=== PATIENT | female | born 1985 | race Caucasian/White ===

== ENCOUNTER 2019-04-24 09:14 | Outpatient (RCR) | payer SELFPAY | END 2019-07-23 | disposition home or self-care (01) | LOC: EDSEX 09:14 → CARD 09:14 | PROVIDERS: ATTEND Nurse Practitioner | DX: R55 Syncope and collapse (principal) | CPT/HCPCS: 93225; 93226 ==

== ENCOUNTER → 2020-05-29 | Outpatient (CLI) | payer OTHER ==
[~2020-05-29] MED LIST: CATHETER FLUSH 10 ML SYR IV PRN; HOLD METFORMIN - RECEIVED CONTRAST 20 ML VIAL IV SCH; IOHEXOL 350 MG/ML 100 ML (OMNIPAQUE 350) VIAL IV ONE; NS 100 ML (IVPB) BAG IV ONE
[2020-05-29 12:17] LABS: HEMATOCRIT 37 % (35-52); HEMOGLOBIN 12.2 G/DL (11.5-16.0); MEAN CORPUSCULAR HEMOGLOBIN 31 PG (25-34); MEAN CORPUSCULAR HGB CONC 33 G/DL (32-36); MEAN CORPUSCULAR VOLUME 92 FL (80-99); MEAN PLATELET VOLUME 9.5 FL (7.4-10.4); NEUTROPHILS % (AUTO) 58 % (42-75); PLATELET COUNT 237 10^3/uL (130-400); WHITE BLOOD COUNT 6.3 10^3/uL (4.3-11.0)
[2020-05-29 12:18] LABS: BASOPHILS # (AUTO) 0.1 10^3/uL (0.0-0.1); BASOPHILS % (AUTO) 1 % (0-10); EOSINOPHILS # (AUTO) 0.2 10^3/uL (0.0-0.3); EOSINOPHILS % (AUTO) 3 % (0-10); LYMPHOCYTES # (AUTO) 2.2 X 10^3 (1.0-4.0); LYMPHOCYTES % (AUTO) 34 % (12-44); MONOCYTES # (AUTO) 0.3 X 10^3 (0.0-1.0); MONOCYTES % (AUTO) 4 % (0-12); NEUTROPHILS # (AUTO) 3.7 X 10^3 (1.8-7.8)
--- NOTE | 2020-05-29 15:30 | Diagnostic Imaging Report ---
PROCEDURE: CT abdomen and pelvis with contrast. TECHNIQUE: Multiple contiguous axial images were obtained through the abdomen and pelvis after administration of intravenous contrast. Auto Exposure Controls were utilized during the CT exam to meet ALARA standards for radiation dose reduction. All CT scans use one or more of the following dose optimizing techniques: automated exposure control, MA and/or KvP adjustment based on patient size and exam type or iterative reconstruction. INDICATION: Right lower quadrant abdominal pain. There is mild heterogeneous enhancement in the hepatic parenchyma, greater in the right lobe. Main portal vein and its right and left branches appear to be widely patent. There is no evidence of pancreatic, adrenal gland, splenic or renal abnormality. No free fluid is seen within the abdomen or pelvis. No localized inflammation is seen within the abdomen or pelvis. The appendix is not well seen however there is no evidence of periappendiceal region inflammation. There is trace pelvic free fluid. Urinary bladder is unremarkable. IMPRESSION: Heterogeneous enhancement in the liver possibly related to hepatitis or venous congestion. Correlation with laboratory values would be of use. Otherwise, no definite acute abnormality is identified in the abdomen or pelvis. Dictated by: Dictated on workstation # [id number]
== END ==
LOC: LAB FS 11:47
PROVIDERS: ATTEND Nurse Practitioner Family
DX: R10.31 Right lower quadrant pain (principal)
CPT/HCPCS: 36415; 74177; 85025

== ENCOUNTER 2020-07-22 05:38 | Outpatient (RCR) | payer OTHER ==
[~2020-07-22] VITALS: Ht 160 cm; Wt 48.1 kg
== END 2020-07-22 14:14 | disposition home or self-care (01) ==
LOC: PREOP 05:38
PROVIDERS: ATTEND Surgery
DX: Z01.812 Encounter for preprocedural laboratory examination (principal); R19.5 Other fecal abnormalities

== ENCOUNTER → 2020-07-25 | Outpatient (CLI) | payer OTHER ==
[~2020-07-25] MED LIST changes: +DIAZ5TAB PO; -HOLD METFORMIN - RECEIVED CONTRAST 20 ML VIAL IV SCH; -IOHEXOL 350 MG/ML 100 ML (OMNIPAQUE 350) VIAL IV ONE; -NS 100 ML (IVPB) BAG IV ONE; +SERT100T PO
--- NOTE | 2020-07-25 13:16 | Diagnostic Imaging Report ---
EXAMINATION: Gallbladder scintigraphy. HISTORY: Right upper quadrant pain. COMPARISON: None available. TECHNIQUE: Anterior scintigraphic imaging of the abdomen was performed after the intravenous administration of 5.3 mCi Tc-99m Choletec. FINDINGS: The upper abdomen was imaged for 60 minutes with the gamma camera. There is prompt homogeneous uptake of radiopharmaceutical by the liver. There is activity in the common duct and gallbladder by 10 minutes. Small bowel activity is seen by 20 minutes. At 60 minutes, the patient received 8 ounces of Ensure. After an additional 60 minutes, the gallbladder ejection fraction was calculated to be 38% (normal is >35%) IMPRESSION: 1. Patent common and cystic bile ducts. 2. No gallbladder dysfunction. Dictated by: Dictated on workstation # [id number]
== END ==
LOC: CARD 09:32
PROVIDERS: ATTEND Surgery
DX: K82.8 Other specified diseases of gallbladder (principal)
CPT/HCPCS: 78227; A9537

== ENCOUNTER 2020-07-29 07:47 | Day surgery (SDC) | payer OTHER ==
[2020-07-29] VITALS (11 sets, daily range): BP systolic 81–107; BP diastolic 48–78
[~2020-07-29] VITALS: Ht 160 cm; Wt 48.0 kg
[2020-07-29] MEDS ORDERED: LACTATED RINGERS 1,000 ML IV STA (07:48)
[2020-07-29] MEDS ORDERED: LACTATED RINGERS 1,000 ML IV ONE (07:51)
[2020-07-29] MEDS ORDERED: HURRICAINE EXT TUBE (BENZOCAINE) XX PRN (08:00)
[2020-07-29] MEDS ORDERED: MIDAZOLAM 5 MG/5 ML (VERSED) VIAL ONE (08:05)
[2020-07-29] MEDS ORDERED: PROPOFOL INJECTION 50 ML IV ONE ×3 (08:05→09:16)
[2020-07-29] MEDS ORDERED: DIAZ5TAB PO (08:19)
[2020-07-29] MEDS ORDERED: SERT100T PO (08:19)
--- NOTE | 2020-07-29 08:22 | Progress Note-Pre Operative ---
Pre-Operative Progress Note H&P Reviewed The H&P was reviewed, patient examined and no changes noted. Time Seen by Provider: 08:18 Date H&P Reviewed: Jul 29, 2020 Time H&P Reviewed: 08:18 Pre-Operative Diagnosis: Gastritis, MelROMI Dhaliwal DO Jul 29, 2020 08:22
--- NOTE | 2020-07-29 10:23 | Progress Note-Post Operative ---
Post-Operative Progess Note Surgeon (s)/Radioisotope Technologist (s) Surgeon ROMI ARMENDARIZ DO Radioisotope Technologist: MICHAEL Hurtado Pre-Operative Diagnosis Gastritis, Melena Post-Operative Diagnosis Gastritis, Esophageal polyp internal hemorrhoids Procedure & Operative Findings Date of Procedure 07/29/20 Procedure Performed/Findings EGD with bx Colonoscopy Anesthesia Type IV sedation by SUPERVISOR FISH PROCESSING Estimated Blood Loss Estimated blood loss (mL): scant Specimens/Packing Specimens Removed antral bx, body of stomach bx, GE jxn bx Esophageal polyp x 2 ROMI ARMENDARIZ DO Jul 29, 2020 10:23
--- NOTE | 2020-07-29 10:24 | Endoscopy Discharge Instruct ---
Endo Procedure/Findings Findings 1.: Gastritis 2.: Other Findings (Esophageal polyp) 3.: Internal Hemorrhoids Discharge Instructions - Activity: You might feel a little sleepy until tomorrow. This is due to the medicine you received to relax you. Until tomorrow, you should: NOT drive a car, operate machinery or power tools. NOT drink any alcoholic beverages. NOT make any important decisions or sign importortant papers. Do not return to work until tomorrow, unless otherwise instructed. Resume previous activities tomorrow. Diet: Start by taking liquids. If you tolerate liquids, advance to solid food. 1.: EGD in 1 year 2.: Colonscopy in 10 years Notify Physician - If you experience excessive bleeding, unusual abdominal pain, fever, or chest pain, contact your doctor immediately. ROMI ARMENDARIZ DO Jul 29, 2020 10:24
--- NOTE | 2020-07-29 11:56 | Anesthesia-General Post-Op ---
MAC Patient Condition Mental Status/LOC: Same as Preop Cardiovascular: Satisfactory Nausea/Vomiting: Absent Respiratory: Satisfactory Pain: Controlled Complications: Absent Post Op Complications Complications None Follow Up Care/Instructions Patient Instructions None needed. Anesthesiology Discharge Order Discharge Order Patient is doing well, no complaints, stable vital signs, no apparent adverse anesthesia problems. No complications reported per nursing. DEE SZYMANSKI CRNA Jul 29, 2020 11:56
--- NOTE | 2020-07-29 23:34 | OPERATIVE REPORT ---
DATE OF SERVICE: PREOPERATIVE DIAGNOSES: Gastritis, melena. l POSTOPERATIVE DIAGNOSES: Gastritis, esophageal polyp, melena and internal hemorrhoids. PROCEDURES: 1. EGD with biopsy. 2. Colonoscopy. SURGEON: Thanh Tan DO IC DESIGN ENGINEER: Citlalli Herrera MS4. ANESTHESIA: IV sedation by the SPECIAL EVENTS DIRECTOR. SPECIMEN: Biopsy from the antrum, biopsy of body of stomach, biopsy of the GE junction and esophageal polyp x2. BLOOD LOSS: Scant. FLUIDS: Per anesthesia. POSTOPERATIVE CONDITION: Stable. INDICATION FOR PROCEDURE: The patient is a 34-year-old female who has been having some upper abdominal pain, sounds like gastritis with some melena, change in stools, needed a workup. FINDINGS: The patient had some gastritis and some esophageal polyps. She also had internal hemorrhoids, nothing else going on in the colon. PROCEDURE NOTE: After informed consent was obtained, the patient was brought to the endoscopy suite, placed in bed in left lateral decubitus position. She was administered IV sedation by the SPECIAL EVENTS DIRECTOR who then monitored her vitals the entire time, heart rate, blood pressure and pulse ox and started with the EGD, placing scope down the mouth. On the way down, took a picture of the vocal cords and then saw a polyp, took a picture. Pushed pass this, saw some changes at the GE junction, took a picture, pushed into the stomach, had some gastritis, took a picture, pushed into the duodenum, looked fine, took a picture. Pulled back and did a biopsy of the antrum. Retroflexed the scope, took another biopsy of body of stomach, did not really see hiatal hernia and at this point then pulled the scope into the GE junction, did a biopsy. Suctioned all the air out and then pulled the scope up into the esophagus and we found two esophageal polyps, removed one of them in one bite and the other one took bites to remove. Some scant bleeding. Pulled the scope up the esophagus and out the mouth. Switched camera, switched gloves, went down below, started the colonoscopy, pushed in to about 140 cm, able to get all the way to cecum, took a picture of appendiceal orifice, noted the ileocecal valve and then slowly withdrew the scope insufflating circumferential us, looking at the cecum, up the ascending colon to the hepatic flexure, then down the transverse colon and splenic flexure, into the descending colon down into the sigmoid and finally into the rectum, retroflexed in the rectal vault, saw some very minimal internal hemorrhoids, grade I may be and then removed the scope. The patient tolerated the procedure. She recovered in endoscopy suite. Job ID: [id number] DocumentID: [id number] Dictated Date: 07/29/2020 20:01:19 Labor Arbitrator Date: 07/29/2020 23:33:54 Dictated By: THANH TAN DO
== END 2020-07-29 10:45 | disposition home or self-care (01) ==
LOC: ENDO 07:47
PROVIDERS: ATTEND Surgery
DX: K29.50 Unspecified chronic gastritis without bleeding (principal); K92.1 Melena; K22.8 Other specified diseases of esophagus; K64.8 Other hemorrhoids; F41.9 Anxiety disorder, unspecified; F32.9 Major depressive disorder, single episode, unspecified; B96.81 Helicobacter pylori [H. pylori] as the cause of diseases classified elsewhere; K20.90 Esophagitis, unspecified without bleeding; F17.210 Nicotine dependence, cigarettes, uncomplicated; Z79.899 Other long term (current) drug therapy; Z90.711 Acquired absence of uterus with remaining cervical stump; Z80.0 Family history of malignant neoplasm of digestive organs; Z80.3 Family history of malignant neoplasm of breast
CPT/HCPCS: 88305; 88342

== ENCOUNTER 2020-07-31 05:50 | Outpatient (RCR) | payer OTHER ==
[~2020-07-31] VITALS: Ht 160 cm; Wt 49.9 kg
[~2020-07-31 05:50] MED LIST changes: -CATHETER FLUSH 10 ML SYR IV PRN
== END 2020-07-31 12:25 | disposition home or self-care (01) ==
LOC: PREOP 05:50
PROVIDERS: ATTEND Surgery
DX: Z01.818 Encounter for other preprocedural examination (principal)

== ENCOUNTER 2020-08-07 09:25 | Day surgery (SDC) | payer OTHER ==
[2020-08-07] VITALS (11 sets, daily range): BP systolic 97–119; BP diastolic 61–72
[~2020-08-07] VITALS: Ht 160 cm; Wt 49.9 kg
[2020-08-07] MEDS ORDERED: LACTATED RINGERS 1,000 ML IV PRN (09:45)
[2020-08-07] MEDS ORDERED: ceFAZolin 2 GM IV Premixed 50 ML IV ONE (09:45)
--- NOTE | 2020-08-07 09:56 | Progress Note-Pre Operative ---
Pre-Operative Progress Note H&P Reviewed The H&P was reviewed, patient examined and no changes noted. Time Seen by Provider: 09:52 Date H&P Reviewed: Aug 07, 2020 Time H&P Reviewed: 09:53 Pre-Operative Diagnosis: Biliary Dyskinesia ROMI ARMENDARIZ DO Aug 07, 2020 09:56
[2020-08-07] MEDS ORDERED: CATHETER FLUSH 10 ML SYR IV PRN (10:00)
[2020-08-07 10:01] LABS: BASOPHILS % (AUTO) 0 % (0-10); EOSINOPHILS # (AUTO) 0.1 10^3/uL (0.0-0.3); EOSINOPHILS % (AUTO) 2 % (0-10); HEMATOCRIT 37 % (35-52); HEMOGLOBIN 11.9 g/dL (11.5-16.0); LYMPHOCYTES # (AUTO) 1.3 10^3/uL (1.0-4.0); LYMPHOCYTES % (AUTO) 24 % (12-44); MEAN CORPUSCULAR HEMOGLOBIN 30 pg (25-34); MEAN CORPUSCULAR HGB CONC 32 g/dL (32-36); MEAN CORPUSCULAR VOLUME 95 fL (80-99); MEAN PLATELET VOLUME 9.4 fL (9.0-12.2); MONOCYTES # (AUTO) 0.3 10^3/uL (0.0-1.0); MONOCYTES % (AUTO) 6 % (0-12); NEUTROPHILS # (AUTO) 3.7 10^3/uL (1.8-7.8); NEUTROPHILS % (AUTO) 68 % (42-75); PLATELET COUNT 233 10^3/uL (130-400); WHITE BLOOD COUNT 5.5 10^3/uL (4.3-11.0)
[2020-08-07] MEDS ORDERED: fentaNYL INJECTION 100 MCG/2 ML AMP ONE (10:02)
[2020-08-07] MEDS ORDERED: MIDAZOLAM 2 MG/2 ML (VERSED) VIAL ONE (10:06)
[2020-08-07] MEDS ORDERED: LIDOCAINE PF 2% 5 ML (XYLOCAINE) VIAL ONE (10:09)
[2020-08-07] MEDS ORDERED: ONDANSETRON 4 MG/2 ML (SDV) Z0FRAN ONE (10:09)
[2020-08-07] MEDS ORDERED: proPOfol 200 MG/20 ML (DIPRIVAN) VIAL IV ONE (10:09)
[2020-08-07] MEDS ORDERED: SEVOFLURANE (ULTANE) 15 ML INHAL SOLN ONE (10:10)
[2020-08-07] MEDS ORDERED: LIDOCAINE/EPI 1%-1:100,000 (XYLOCAINE) 50 ML ONE (10:12)
[2020-08-07] MEDS ORDERED: IOPAMIDOL 61% 30 ML (ISOVUE 300) VIAL ONE (10:12)
[2020-08-07] MEDS ORDERED: ROCURONIUM 10 MG/ML 5 ML SYRINGE IV ONE ×3 (10:24→10:38)
[2020-08-07] MEDS ORDERED: GLYCOPYRROLATE 0.2 MG/ML (ROBINUL) 2 ML VIAL ONE (11:11)
[2020-08-07] MEDS ORDERED: NEOSTIGMINE 3 MG/3 ML VIAL ONE (11:12)
--- NOTE | 2020-08-07 11:24 | Progress Note-Post Operative ---
Post-Operative Progess Note Surgeon (s)/Armed Security Professional (s) Surgeon ROMI ARMENDARIZ DO Armed Security Professional: Gucci Pre-Operative Diagnosis Biliary Dyskinesia Post-Operative Diagnosis same Procedure & Operative Findings Date of Procedure 08/07/20 Procedure Performed/Findings PROCEDURE: Laparoscopic cholecystectomy with intraoperative cholangiogram. COMPLICATIONS: None. PROCEDURE: The patient was taken to the operating suite and was prepped and draped in sterile fashion. A surgical pause was performed. Just superior to the umbilicus, a 12 mm incision was made. Dissection was taken down to the fascia, which was then scored and grasped with a Jensen and the abdomen was then entered. A 0 Vicryl suture was placed in a bjuqyk-aw-pdqaf fashion and a Kingsley trocar was placed and secured. Pneumoperitoneum was achieved. A 5mm trochar place in the subxyphoid and 2 in the right upper quadrant. The gallbladder was then grasped and elevated. There were adhesions to the gallbladder which usually indicates previous galllbladder attacks. These were taken down and then the cystic duct, and cystic artery were then dissected out. Artery was in front of the duct so it was transected first. Clips were placed along the proximal and distal portion of the cystic artery which was then transected. Clip was placed on the distal portion of the cystic duct which was then partially transected. An arrow catheter was inserted into the duct. The cholangiogram was then performed. No filing defects and contrast made its way into the duodenum. Catheter removed. Clips were placed on proximal portion of the cystic duct and then the duct was then transected. Hook cautery was used to dissect the gallbladder from the gallbladder fossa achieving hemostasis. The gallbladder was placed in an Endobag and removed through the 12 mm trocar site. The abdomen was then reinspected. Copious amounts of irrigation were used to irrigate the abdomen and there were no signs of active bleeding. Hemostasis had been achieved. The 12 mm fascial defect was then closed with 0 Vicryl suture that had been placed in a [id number]-[id number] fashion. The abdomen was then desufflated, the trocars were removed. The abdomen was then washed and dried. The skin was then closed using 4-0 Monocryl in a subcuticular fashion. The abdomen was washed and dried and Skin Affix was place over incisions. Patient tolerated the procedure well without any complications and was taken to the recovery room in stable condition. Dr. Duckworth assisted on this case helping to make incisions, close incisions, identify anatomy and hold anatomy out of the way. Anesthesia Type GET Estimated Blood Loss Estimated blood loss (mL): scant Specimens/Packing Specimens Removed GB and contents ROMI ARMENDARIZ DO Aug 07, 2020 11:24
[2020-08-07] MEDS ORDERED: ACHD5005 PO (11:25)
--- NOTE | 2020-08-07 11:25 | Discharge Inst-Surgical ---
Discharge Inst-Surgical Depart Medication/Instructions New, Converted or Re-Newed RX: RX Given to Pt/Family Patient Instructions Follow up Appt: Make appointment for 1 week. [phone] Instructions: No lifting greater than 20 pounds. No strenuous activity. May shower in 24 hours, no tub bath or soaking. Use incentive spirometer at home as directed. No Smoking Skin/Wound Care: May remove bandages in am. You need to leave the Dermabond on incision it will fall off on it's own. Symptoms to Report: Appetite Changes, Extremity Discoloration, Numbness/Tingling, Swelling Increased, Bleeding Excessive, Eyesight Changes, Pain Increased, Urine Color Change, Constipation(Persistent), Fever over 101 degree F, Pain/Pressure in chest, Urinating Difficulty, Cough Up/Vomit Blood, Heart Beat Irreg/Pounding, Pain/Pressure in jaw, Cramps in feet or legs, Lightheadedness, Pain/Pressure in shoulder, Diarrhea(Persistent), Memory Changes Suddenly, Questions/Concerns, Weight gain consecutive days, Dizziness/Fainting, Nausea/Vomiting, Shortness of Breath, Weight gain over 2 pounds If questions or concerns contact your physician Or seek help at emergency department. Activity Activity as Tolerated: Yes Activity Instructions: Avoid Stress to Incision Driving Instructions: No Driving/Refer to Diet Discharge Diet: Avoid Fatty Foods, Low Fat/Low Cholesterol Diet After 24 Hours: Clear Liquid if Nauseous If Any Problems/Questions/Issu: Contact Your Physician, Go to Emergency Room Skin/Wound Care Infection Signs and Symptoms: Increased Redness, Foul Odor of Wound, Increased Drainage, Skin Itchy or Has a Rash, Increased Swelling, Temperature Above 101 F Wound Care Comment: heating pad to shoulder or neck tonight for pain Bathing Instructions: Shower Stitches/Gomer/Dermabond Dis: Dermabond Ice Pack: Ice On and Off Site (as needed for pain at incision) ROMI ARMENDARIZ DO Aug 07, 2020 11:25
[2020-08-07] MEDS ORDERED: MEPERIDINE (DEMEROL) INJ 50 MG/ML IVP ONE (11:30)
[2020-08-07] MEDS ORDERED: HYDROmorphone 2 MG/ML VIAL (DILAUDID) IV ONE (11:30)
[2020-08-07] MEDS ORDERED: morphine INJ 10 MG/ML 1ML (SYR OR VIAL) IVP ONE (11:30)
--- NOTE | 2020-08-07 11:33 | Anesthesia-General Post-Op ---
General Patient Condition Mental Status/LOC: Same as Preop Cardiovascular: Satisfactory Nausea/Vomiting: Absent Respiratory: Satisfactory Pain: Controlled Complications: Absent Post Op Complications Complications None Follow Up Care/Instructions Patient Instructions None needed. Anesthesia/Patient Condition Patient Condition Patient is doing well, no complaints, stable vital signs, no apparent adverse anesthesia problems. No complications reported per nursing. HILARY VELASCO CRNA Aug 07, 2020 11:33
[2020-08-07] MEDS: ONDANSETRON 4 MG/2 ML (SDV) Z0FRAN IVP PRN ×2 (11:42→11:54)
--- NOTE | 2020-08-07 12:02 | Diagnostic Imaging Report ---
INDICATION: Fluoroscopy for intraoperative echocardiogram. Fluoroscopy was provided in the OR during intraoperative cholangiogram. 16 seconds of fluoroscopic time was utilized. Images demonstrate contrast being injected via the cystic duct remnant. The extra hepatic bile duct is of normal caliber. There is no filling defect to suggest retained stone. Contrast flows into the duodenum. IMPRESSION: Fluoroscopy during intraoperative cholangiogram. Dictated by: Dictated on workstation # [id number]
[2020-08-07] MEDS ORDERED: HYDROcodone/APAP 5 MG/325 MG (LORTAB) TAB ONE (12:59)
[2020-08-07] MEDS ORDERED: HYDROcodone/APAP 5 MG/325 MG (LORTAB) TAB PO ONE (13:15)
== END 2020-08-07 13:25 | disposition home or self-care (01) ==
LOC: SDC 09:25
PROVIDERS: ATTEND Surgery
DX: K81.1 Chronic cholecystitis (principal); K82.8 Other specified diseases of gallbladder; F41.9 Anxiety disorder, unspecified; F32.9 Major depressive disorder, single episode, unspecified; Z79.899 Other long term (current) drug therapy; Z90.711 Acquired absence of uterus with remaining cervical stump; Z80.0 Family history of malignant neoplasm of digestive organs; Z80.3 Family history of malignant neoplasm of breast
CPT/HCPCS: 36415; 76000; 85025; 87081; 88304